=== PATIENT | female | born 1995 | race Two or more races ===

== ENCOUNTER → 2022-01-25 13:00 | Outpatient (BNVA) | payer OTHER, SELFPAY | PROVIDERS: Visit Provider Physician Assistant | DX: E66.01 Morbid (severe) obesity due to excess calories (principal); Z68.41 Body mass index [BMI] 40.0-44.9, adult; Z90.3 Acquired absence of stomach [part of] | CPT/HCPCS: 99202 ==

== ENCOUNTER 2022-02-15 08:27 | Outpatient (REF) | payer OTHER, SELFPAY ==
[2022-02-15 09:08] LABS: MANUAL DIFF FLAG NO
[2022-02-15 09:25] LABS: Basophils Percent Auto 0.3 % (0-2); Eosinophils Percent Auto 0.7 % (0-4); Hematocrit 37.8 % (37.0-47.0); Hemoglobin 12.5 g/dl (12.0-16.0); Imm Gran Abs Auto 0.02 X10*3/uL (0.00-0.03); Imm Gran Pct Auto 0.3 % (0.0-0.4); Lymphocytes Absolute Auto 1.9 X10*3/uL (1.2-4.9); Lymphocytes Percent Auto 31.4 % (20-40); Mean Corpuscular HGB Conc 33.1 g/dl (31.0-35.0); Mean Corpuscular Volume 84.6 fL (80.0-98.0); Mean Platelet Volume 9.4 fL (9.4-12.3); Monocytes Absolute Auto 0.4 X10*3/uL (0.1-1.2); Monocytes Percent Auto 6.3 % (2-11); Neutrophils Absolute Auto 3.7 x10*3/uL (2.0-8.3); Platelet Count 264 X10*3/uL (160-400); Red Blood Count 4.47 X10*6/uL (4.20-5.50); Red Cell Distribution Width 13.2 % (11.0-16.0); White Blood Count 6.1 X10*3/uL (4.8-10.8)
[2022-02-15 09:32] LABS: Estimated Average Glucose 94 mg/dL; Hemoglobin A1c % 4.9 %
[2022-02-15 10:05] LABS: Alanine Aminotransferase 33 U/L (0-31); Albumin Level 4.3 g/dL (3.5-5.0); Alkaline Phosphatase 82 U/L (39-117); Anion Gap 13 (12-20); Aspartate Amino Transferase 28 U/L (5-31); Bilirubin Total 0.4 mg/dL (0.0-1.0); Blood Urea Nitrogen 10 mg/dL (9-16); C Reactive Protein 1.19 mg/dL (< or = 0.50); Calcium 9.1 mg/dL (8.4-10.2); Carbon Dioxide 26 mmol/L (22-29); Chloride 104 mmol/L (96-108); Cholesterol 203 mg/dL; Estimated Glomerular Filt Rate > 60; Ferritin 19 ng/mL (10-122); Glucose Random 96 mg/dL (60-115); HDL Cholesterol 59 mg/dL; Insulin 12 uU/mL (2-29); Iron 102 mcg/dL (30-160); LDL Cholesterol Calculated 126 mg/dl; Percent Iron Saturation 31 % (15-50); Sodium 139 mmol/L (135-145); TSH reflex Free T4 1.51 uIU/mL (0.32-4.0); Total Iron Binding Capacity 333 mcg/dL (228-428); Total Protein 7.5 g/dL (6.5-8.0); Triglycerides 93 mg/dL; Unsaturated Iron Binding 231 ug/dL
[2022-02-15 10:16] LABS: Folate 10.8 ng/mL (> or = 4.0); Vitamin B12 237 pg/mL (200-900)
[2022-02-16 13:57] LABS: H Pylori Breath Test Negative (Negative)
[2022-02-16 17:53] LABS: Calcium (PTHI) 9.1 mg/dL (8.6-10.2); PTHI 67 pg/mL (16-77)
[2022-02-18 10:38] LABS: Vitamin B1 8 nmol/L (8-30)
[2022-02-18 19:24] LABS: Zinc 68 mcg/dL (60-130)
[2022-02-20 16:54] LABS: Vitamin A 29 mcg/dL (38-98)
== END 2022-02-15 08:28 | disposition home or self-care (01) ==
LOC: HO.LAB 08:27
PROVIDERS: PCP Internal Medicine; Visit Provider Physician Assistant
DX: Z01.818 Encounter for other preprocedural examination (principal); E66.01 Morbid (severe) obesity due to excess calories; Z90.3 Acquired absence of stomach [part of]
CPT/HCPCS: 36415; 80053; 80061; 82306; 82607; 82728; 82746; 83013; 83036; 83525; 83540; 83970; 84425; 84443; 84590; 84630; 85025; 86140; 99211

== ENCOUNTER → 2022-02-17 13:03 | Outpatient (BNVA) | payer OTHER, SELFPAY | PROVIDERS: PCP Internal Medicine; Visit Provider Dietitian, Registered | DX: E66.01 Morbid (severe) obesity due to excess calories (principal) | CPT/HCPCS: 97802 ==

== ENCOUNTER → 2022-03-08 16:00 | Outpatient (BNVA) | payer OTHER, SELFPAY | PROVIDERS: PCP Internal Medicine; Visit Provider Physician Assistant | DX: Z13.89 Encounter for screening for other disorder (principal) ==

== ENCOUNTER 2022-03-15 09:50 | Outpatient (REF) | payer OTHER, SELFPAY ==
--- NOTE | ~2022-03-15 | US_ITS ---
EXAMINATION: US COMPLETE ABDOMEN WITH LIVER ELASTOGRAPHY CLINICAL INFORMATION: Bariatric service evaluation. E66.01 COMPARISON: None. TECHNIQUE: Real-time imaging of the abdominal viscera. Noninvasive ultrasound liver fibrosis assessment is performed using Marissa ElastPQ point quantification shear wave elastography (2D-SWE) with a C5-2 MHz transducer. Multiple elastography samples are obtained. FINDINGS: PANCREAS: The pancreas is obscured by bowel gas and not imaged. ABDOMINAL AORTA: The proximal, middle, and distal aortic segments are normal in caliber. INFERIOR VENA CAVA: Visualized portions are normal. LIVER: The liver is normal in size and smooth in contour. Parenchymal areas homogeneous and there is no parenchymal lesion or intrahepatic ductal dilatation. There is likely borderline hepatic steatosis. The right lobe measures 12.4 cm in length. The left lobe measures 8.6 cm in length. Portal flow is towards the liver (hepatopetal). Shear wave liver elastography median stiffness is 1.40 m/s (reference: normal median stiffness is 1.3 m/s or less). IQR/median stiffness to assess sampling precision is 0.17 (reference: good quality data set is IQR/median stiffness of 0.15 or less). GALLBLADDER: Normal. The gallbladder is physiologically distended without evidence of stones, sludge, polyps, wall thickening or pericholecystic fluid. COMMON BILE DUCT: Normal in caliber measuring 0.2 cm in diameter. RIGHT KIDNEY: Normal. No hydronephrosis. No renal calculi or focal parenchymal lesions. The kidney measures 9.7 cm in maximum dimension. LEFT KIDNEY: Normal. No hydronephrosis. No renal calculi or focal parenchymal lesions. The kidney measures 10.1 cm in maximum dimension. SPLEEN: Normal. The spleen measures 9.9 cm in maximum dimension. FREE FLUID: None. US/US abdomen comp w elastography IMPRESSION: 1. No cholelithiasis or ductal dilatation. 2. Pancreas obscured by bowel gas and not imaged. 3. Liver normal in size and homogeneous. Although liver elastography measurements appear to rule out compensated advanced chronic liver disease, there is statistical variability of the sampling which decreases accuracy. REFERENCE: Society of Radiologists in Ultrasound Liver Stiffness Thresholds (2020): LIVER STIFFNESS THRESHOLDS: *Liver Stiffness equal or less than 1.3 m/s: High probability of being normal. *Liver Stiffness less than 1.7 m/s: In the absence of other known clinical signs, rules out compensated advanced chronic liver disease. *Liver Stiffness 1.7-2.1 m/s: Suggestive of compensated advanced chronic liver disease but need further test for confirmation. *Liver Stiffness over 2.1 m/s: Rules in compensated advanced chronic liver disease. *Liver Stiffness over 2.4 m/s: Suggestive of clinically significant portal hypertension. QUALITY OF DATA SET: *IQR/Median value equal or less than 0.15 implies a quality data set. *IQR/Median value over 0.15 implies a poor quality data set. SIGNIFICANT CHANGE FROM PRIOR EXAM: Significant change if liver stiffness measurement is 10% or greater from prior exam. OTHER CONSIDERATIONS: The stage of liver fibrosis may be overestimated in the setting of acute hepatitis, liver inflammation, elevated liver function tests, hepatic vascular congestion, obstructive cholestasis, non-fasting state, and infiltrative diseases such as amyloidosis and lymphoma. In some patients with NAFLD, the liver stiffness thresholds for compensated advanced chronic liver disease may be lower. In causes other than viral hepatitis and NAFLD, liver stiffness thresholds are not well established.
--- NOTE | ~2022-03-15 | XR_ITS ---
EXAMINATION: XR CHEST CLINICAL INFORMATION: Bariatric service evaluation. E66.01 COMPARISON: None TECHNIQUE: 2 views of the chest were obtained. FINDINGS: The lungs are clear. No hyperinflation, infiltrate, or effusion. Heart size normal. Vascularity normal. Costophrenic sulci are clear. The hilar and mediastinal contours and bony structures are unremarkable. XR/XR chest 2V IMPRESSION: Unremarkable examination.
--- NOTE | ~2022-03-15 | FL_ITS ---
EXAMINATION: FL UPPER GI SERIES CLINICAL INFORMATION: Bariatric service evaluation. E 66.01. Prior history gastric sleeve approximately 6 years ago at outside facility. COMPARISON: Chest radiograph 03/15/2022 TECHNIQUE: Upper GI series is performed using fluoroscopic evaluation in addition to multiple fluoroscopic spot views. The patient is imaged both upright and prone and using thin barium sulfate along with effervescent granules. Patient declined thick viscous barium which limits mucosal coating. Fluoroscopy time: 0.9 minutes DAP: 17.409 Gycm2 Fluoroscopic spot images: 18 FINDINGS: Patient declined thick viscous barium which limits mucosal coating for assessment of erosions and small ulcerations. There is normal esophageal motility. There is no obstruction, stricture, ulceration, or hernia. There is spontaneous gastroesophageal reflux seen during fluoroscopy to proximal thoracic esophagus. There has been prior gastric sleeve. The stomach shows no thickened folds or ulcer crater. There is no gastric outlet obstruction. The duodenal bulb is pliable and there is no ulceration or scarring. Upper jejunal mucosal pattern within normal. FL/FL upper GI w air IMPRESSION: -Spontaneous gastroesophageal reflux to proximal thoracic esophagus. -Prior gastric sleeve. No ulcer crater or gastric outlet obstruction.
--- NOTE | 2022-03-15 10:51 | ECG_ITS ---
Test Reason : obesity Blood Pressure : / mmHG Vent. Rate : 093 BPM Atrial Rate : 093 BPM P-R Int : 152 ms QRS Dur : 078 ms QT Int : 352 ms P-R-T Axes : 049 024 010 degrees QTc Int : 437 ms Normal sinus rhythm Normal ECG No previous ECGs available Referred By: Lucinda Lam Electronically Signed By:ELISA MCGEE
== END 2022-03-15 09:51 | disposition home or self-care (01) ==
LOC: HO.US 09:50
PROVIDERS: PCP Internal Medicine; Visit Provider Physician Assistant
DX: Z01.818 Encounter for other preprocedural examination (principal); E66.01 Morbid (severe) obesity due to excess calories; Z90.3 Acquired absence of stomach [part of]
CPT/HCPCS: 71046; 74246; 76705; 76981; 93005

== ENCOUNTER → 2022-03-16 14:00 | Outpatient (BNVA) | payer OTHER, SELFPAY | PROVIDERS: PCP Internal Medicine; Visit Provider Counselor Mental Health | DX: F43.20 Adjustment disorder, unspecified (principal); E66.01 Morbid (severe) obesity due to excess calories; Z90.3 Acquired absence of stomach [part of] | CPT/HCPCS: 90791 ==

== ENCOUNTER → 2022-04-07 10:00 | Outpatient (BNVA) | payer OTHER, SELFPAY | PROVIDERS: PCP Internal Medicine; Visit Provider Physician Assistant | DX: Z13.89 Encounter for screening for other disorder (principal) ==

== ENCOUNTER 2022-04-11 05:52 | Day surgery (SDC) | payer OTHER, SELFPAY ==
[2022-04-04 11:20] VITALS: BMI 40.6
--- NOTE | 2022-04-08 15:21 | MHC.SHP ---
Pre-Procedural Eval Section A Date of Service: 04/08/22 The patient is an INPATIENT: No The History & Physical has been completed within 30 days and I have reviewed it.: Yes Section B Chief Complaint: Bariatric surgery status Relevant Family History (Specify if Yes): No Relevant Social History: None Present Medications: None Medical History: No relevant PMH History of Previous Operations: Relevant previous surgery/procedure and date(s) (Laparoscopic sleeve gastrectomy) Allergies: Allergies Allergy/AdvReac Type Severity Reaction Status Date / Time No Known Allergies Allergy Verified 02/15/22 09:13 Review of Systems Sugical H&P ROS: Negative: Constitution, Cardiovascular, Respiratory, Neurological, Psychiatric, Hem-Onc, Allergic/Immunologic, Gastrointestinal, Genitourinary, Musculoskeletal, Integumentary, Endocrine and Eyes/Ears/Nose/Throat Exam Surgical H&P Exam: Normal: HEENT, Normal: Heart, Normal: Lungs, Normal: Extremities, Normal: Abdomen, Normal: Skin and Normal: Neurological Plan Diagnosis/Plan: Unchanged (EGD to assess for esphagitis. Risks for perforation and bleeding were discussed with patient. She is in agreement with the plan) I have reviewed the history and physical and performed a pertinent physical examination on my patient. No changes have occurred unless specified. Time Spent With Patient Time: Total time managing care of this patient today ____ minutes.
[2022-04-11 06:15] LABS: UPreg QC Valid YES; Urine Pregnancy NEGATIVE (NEGATIVE)
[2022-04-11 06:22] LABS: COVID-19 Test Negative (Negative); IDNOW Serial# BCCEAD1C
[2022-04-11 06:32] VITALS: BP 108/73; PULSE 79; RESP 16; TEMP 36.2; O2SAT 100; BMI 39.2
[2022-04-11] MEDS: Lactated Ringers 1,000 ML 80 ML IVCONT (06:45)
--- NOTE | 2022-04-11 07:18 | P.CONAN_ITS ---
HPI - Anesthesia Eval Consult details Narrative: 26yo female patient for EGD. S/p Sleeve gastrectomy 2016 [facility] Active Problems Active Problems: All Active Problems (Updated 03/16/22 @ 14:28 by Rochelle Hopkins) Adjustment disorder, unspecified (Acute) Pre-op evaluation (Acute) History of sleeve gastrectomy (Acute) Morbid obesity (Acute) BMI 39.2 Denies BJ Family History Family History Mother No problems noted. Father No problems noted. Sister No problems noted. Family history of problems with anesthesia: No Surgical History Surgical History History of sleeve gastrectomy History of Problems with Anesthesia: No Social History Social History Alcohol intake: current Alcohol intake frequency: a few times a month Patient Tobacco Use Status: Never used Tobacco e-Cigarette/Vaping Use: Currently Using Use of substances other than those prescribed or required for medical reasons: No Are you DNR?: No Advance Directives: No Advance Directives Information Provided: Yes Meds Allergies Allergy/AdvReac Type Severity Reaction Status Date / Time No Known Allergies Allergy Verified 04/11/22 06:11 Active Medications: Current Medications Lactated Ringer's (Lr) 1,000 mls @ 80 mls/hr IVCONT .[id number] MARY Last Admin: 04/11/22 06:45 Dose: 80 mls/hr Home Medications Medication Instructions Recorded Confirmed Last Taken Type trazodone 50 mg tablet 50 mg PO BEDTIME PRN Sleep 01/11/22 04/11/22 04/10/22 22:00 History Exam Exam Date and Time: April 11, 2022 0718 Height,Weight and Vital Signs: Height 5 ft 4.5 in Weight 105.233 kg Last Vital Signs Temp 97.2 F 04/11/22 06:32 Pulse 79 04/11/22 06:32 Resp 16 04/11/22 06:32 BP 108/73 04/11/22 06:32 Pulse Ox 100 04/11/22 06:32 O2 Del Method 04/11/22 06:32 Pertinent Lab Results Pertinent Lab Results: Laboratory Tests 04/11/22 04/11/22 05:44 05:44 Urine Test NEGATIVE COVID-19 ([facility]) Negative COVID-19 Clin Com See Note Airway Mallampati Class: II TM Dist: >3cm Neck ROM: Full Loose/Missing/Broken Teeth: No (Cap top right back. Denies broken, loose, missing teeth) Heart: RRR Lungs: CTAB Assessment and Plan Assessment Anesthesia Assessment: Anesthesia Plan Discussed and Chart Reviewed Final Anesthetic Review Family History of Problems with Anesthesia: No History of Problems with Anesthesia: No NPO: Yes ASA Class: III Final Preanesthetic Review: No Changes in Pt Med Stat, Meds/Allgs Chart Reviewed, Consent Obtained/Reviewed and Anes Risks/Benef Reviewed Patient Risk: Intermediate Procedure Risk: Low Assessment/Block/Sedation in SS: Assess/Block/Sedation-SS Anesthetic Plan Anesthetic Plan: MAC: Disposition: Standard PACU
--- NOTE | 2022-04-11 07:38 | PM.OP ---
Brief Operative Note Date of Service: 04/11/22 Pre-op diagnosis: GERD, s/p sleeve gastrectomy Post-op diagnosis: same Procedure: PROCEDURE DATE: 04/11/2022 PREOPERATIVE DIAGNOSIS: GERD, s/p sleeve gastrectomy POSTOPERATIVE DIAGNOSIS: ?Same as above. 1) redundant proximal sleeve,, 2) bile reflux, 3) mild distal gastritis PROCEDURE: [id number] with biopsies Surgeon: ?Kamran Ling M.D.. Ph.D. Retail Presentation Specialist: None ? Anesthesia: IV sedation Estimated blood loss: ?Minimal FINDINGS AND PROCEDURE: ? OPERATIVE INDICATIONS: ?The patient is a 26 year old female known to me who underwent a laparoscopic sleeve gastrectomy elsewhere. The patient had inadequate weight loss. The patient has been complaining of GERD. Based on this information I recommended an upper endoscopy to evaluate the patient's symptoms. Risks and complications of the surgery were discussed with the patient in advance particularly the possibility of perforation or bleeding that may require surgical intervention. The patient understood the risks and was in agreement with the plan. ? PROCEDURE: After informed consent was obtained by the patient, the patient was ?transferred to the Operating Room and was placed in the supine position.? After successful induction of IV sedation, a mouth block was inserted and the patient was placed in the left lateral decubitus position. An upper endoscopy was performed next, the oropharynx and esophagus appeared within the normal limits. There was no hiatal hernia. The z-line was smooth. Two biopsies were obtained from the distal esohagus 2-3 cm proximal to the GE junction and two additional biopsies from the GE junction. The sleeve was entered and there was a sifnificant amount of bile. The proximal sleeve was very redundant suggestive of incomplete resection at the original operation. There was a very sharp turn at the middle part of the sleeve but no stenosis. There was mild gastritis at distal antrum. There was no stricture or ulcer. Biopsies were obtained from the proximal sleeve as well as the distal antrum. No significant bleeding was noted from any of the biopsy sites. The scope was then advanced into the duodenum which appeared to be normal as well. At that point the duodenum ?and the sleeve were decompressed and the scope was withdrawn from the patient's mouth. The patient extubated and was transferred in stable condition to the Recovery Room for further care. I was present and performed all steps of the procedure. There were no residents to assist with this case. Kamran Ling M.D., Ph.D. Surgeon: Cole Ling MD Anesthesia: MAC Was an Retail Presentation Specialist used for this Procedure?: No Estimated blood loss (mL): 0 IV fluids (mL): 400 Urine output (mL): 0 (No Henson to record output) Pathology: other (1) antrum x1, 2) proximal sleeve/gastric fundus x1, 3) EGJ x2, 4) distal esophagus x2) Condition: stable Disposition: PACU
[2022-04-11 08:07] VITALS: BP 105/59; PULSE 73; RESP 16; TEMP 36.3; O2SAT 99
[2022-04-11 08:22] VITALS: BP 104/62; PULSE 72; RESP 16; TEMP 36.3; O2SAT 100
== END 2022-04-11 09:04 | disposition home or self-care (01) ==
PROVIDERS: Anesthesiology; PCP Internal Medicine; Visit Provider Surgery
PROC: 0DJ08ZZ Inspection of Upper Intestinal Tract, Via Natural or Artificial Opening Endoscopic (ICD-10-PCS; CPT 43235; principal; 2022-04-11 07:30)
DX: K95.89 Other complications of other bariatric procedure (principal); K21.9 Gastro-esophageal reflux disease without esophagitis; K20.90 Esophagitis, unspecified without bleeding; K29.50 Unspecified chronic gastritis without bleeding; Z98.84 Bariatric surgery status; Z90.3 Acquired absence of stomach [part of]; Z79.4 Long term (current) use of insulin; Z79.899 Other long term (current) drug therapy; Z20.822 Contact with and (suspected) exposure to COVID-19; F17.290 Nicotine dependence, other tobacco product, uncomplicated
CPT/HCPCS: 43239; 81025; 87635; 88305; 88342; J3010

== ENCOUNTER → 2022-04-27 13:30 | Outpatient (BNVA) | payer OTHER, SELFPAY | PROVIDERS: PCP Internal Medicine; Visit Provider Physician Assistant ==

== ENCOUNTER → 2022-05-12 08:19 | Outpatient (BNVA) | payer OTHER, SELFPAY | PROVIDERS: PCP Internal Medicine; Visit Provider Surgery ==

== ENCOUNTER → 2022-05-17 08:04 | Outpatient (BNVA) | payer OTHER, SELFPAY | PROVIDERS: PCP Internal Medicine; Visit Provider Surgery | DX: E66.9 Obesity, unspecified (principal); Z68.38 Body mass index [BMI] 38.0-38.9, adult; Z90.3 Acquired absence of stomach [part of]; K20.90 Esophagitis, unspecified without bleeding; R11.0 Nausea; Z01.818 Encounter for other preprocedural examination ==

== ENCOUNTER → 2022-05-19 12:48 | Outpatient (BNVA) | payer OTHER, SELFPAY | PROVIDERS: PCP Internal Medicine; Visit Provider Surgery ==

== ENCOUNTER → 2022-05-25 09:05 | Day surgery (SDC) | payer OTHER, SELFPAY ==
[2022-05-18 08:23] LABS: MANUAL DIFF FLAG NO
[2022-05-18 08:25] LABS: Basophils Percent Auto 0.5 % (0-2); Eosinophils Absolute Auto 0.1 X10*3/uL (0.0-0.4); Eosinophils Percent Auto 1.2 % (0-4); Hematocrit 39.6 % (37.0-47.0); Hemoglobin 13.2 g/dl (12.0-16.0); Imm Gran Abs Auto 0.02 X10*3/uL (0.00-0.03); Imm Gran Pct Auto 0.3 % (0.0-0.4); Lymphocytes Absolute Auto 1.6 X10*3/uL (1.2-4.9); Lymphocytes Percent Auto 24.3 % (20-40); Mean Corpuscular HGB Conc 33.3 g/dl (31.0-35.0); Mean Corpuscular Hemoglobin 28.5 pg (27.0-33.0); Mean Corpuscular Volume 85.5 fL (80.0-98.0); Mean Platelet Volume 9.2 fL (9.4-12.3); Monocytes Absolute Auto 0.4 X10*3/uL (0.1-1.2); Neutrophils Absolute Auto 4.4 x10*3/uL (2.0-8.3); Neutrophils Percent Auto 67.7 % (45-73); Platelet Count 261 X10*3/uL (160-400); Red Blood Count 4.63 X10*6/uL (4.20-5.50); Red Cell Distribution Width 13.9 % (11.0-16.0); White Blood Count 6.6 X10*3/uL (4.8-10.8)
[2022-05-18 08:32] LABS: Prothrombin Time 11.5 SEC (10.0-13.1)
[2022-05-18 08:34] LABS: Estimated Average Glucose 103 mg/dL; Hemoglobin A1c % 5.2 %
[2022-05-18 08:35] LABS: Partial Thromboplastin Time 36.3 SEC (26.0-36.4)
[2022-05-18 09:09] LABS: Alanine Aminotransferase 20 U/L (0-31); Albumin Level 4.2 g/dL (3.5-5.0); Alkaline Phosphatase 86 U/L (39-117); Anion Gap 14 (12-20); Aspartate Amino Transferase 22 U/L (5-31); Bilirubin Total 0.7 mg/dL (0.0-1.0); Blood Urea Nitrogen 9 mg/dL (9-16); C Reactive Protein 2.23 mg/dL (< or = 0.50); Calcium 8.8 mg/dL (8.4-10.2); Carbon Dioxide 22 mmol/L (22-29); Chloride 110 mmol/L (96-108); Cholesterol 208 mg/dL; Estimated Glomerular Filt Rate > 60; Glucose Random 88 mg/dL (60-115); HDL Cholesterol 60 mg/dL; LDL Cholesterol Calculated 127 mg/dl; Potassium 4.3 mmol/L (3.3-5.1); Sodium 142 mmol/L (135-145); Total Protein 7.4 g/dL (6.5-8.0); Triglycerides 109 mg/dL
[2022-05-18 09:25] LABS: Insulin 13 uU/mL (2-29); TSH reflex Free T4 1.67 uIU/mL (0.32-4.0)
[2022-05-19 09:01] VITALS: BMI 38.0
--- NOTE | 2022-05-19 17:52 | MHC.SHP ---
Pre-Procedural Eval Section A Date of Service: 05/19/22 The patient is an INPATIENT: Yes The History & Physical has been completed within 30 days and I have reviewed it.: Yes Section B Chief Complaint: Obesity, unspecified Relevant Family History (Specify if Yes): No Relevant Social History: None Present Medications: None Medical History: No relevant PMH History of Previous Operations: Relevant previous surgery/procedure and date(s) (laparoscopic sleeve gastrectomy) Allergies: Allergies Allergy/AdvReac Type Severity Reaction Status Date / Time No Known Allergies Allergy Verified 04/11/22 06:11 Review of Systems Sugical H&P ROS: Negative: Constitution, Cardiovascular, Respiratory, Neurological, Psychiatric, Hem-Onc, Allergic/Immunologic, Gastrointestinal, Genitourinary, Musculoskeletal, Integumentary, Endocrine and Eyes/Ears/Nose/Throat Exam Surgical H&P Exam: Normal: HEENT, Normal: Heart, Normal: Lungs, Normal: Extremities, Normal: Abdomen, Normal: Skin and Normal: Neurological Plan Diagnosis/Plan: Unchanged I have reviewed the history and physical and performed a pertinent physical examination on my patient. No changes have occurred unless specified. Time Spent With Patient Time: Total time managing care of this patient today ____ minutes.
[2022-05-24 13:41] LABS: COVID-19 Test Negative (Negative); IDNOW Serial# 9DB6401D
--- NOTE | 2022-05-25 09:14 | PHA.MEDREC ---
Pharmacy Consult ? Medication Reconciliation Pharmacy has reviewed the medication reconciliation completed by nursing.
[2022-05-25 09:48] VITALS: BP 99/67; PULSE 75; RESP 16; TEMP 36.3; O2SAT 98
[2022-05-25 09:48] LABS: UPreg QC Valid YES; Urine Pregnancy NEGATIVE (NEGATIVE)
[2022-05-25] MEDS: Lactated Ringers 1,000 ML 999 ML IV (10:02)
--- NOTE | 2022-05-25 10:12 | P.CONAN_ITS ---
HPI - Anesthesia Eval Consult details Narrative: 26yo female patient for EGD, Revision of sleeve gastrectomy, possible diaphragmatic hernia repair, possible ventral hernia repair, possible open PMFSH Active Problems Active Problems: All Active Problems (Updated 05/19/22 @ 09:01 by Cynthia Wilson RN) Morbid obesity (Acute) Pre-op evaluation (Acute) Adjustment disorder, unspecified (Acute) Esophagitis determined by endoscopy (Acute) Obesity (Acute) BMI 38.0-38.9,adult (Acute) History of sleeve gastrectomy (Acute) Past Medical History Medical History Esophagitis determined by endoscopy GERD (gastroesophageal reflux disease) Insomnia Family History Family History Mother No problems noted. Father No problems noted. Sister No problems noted. Family history of problems with anesthesia: No Surgical History Surgical History History of esophagogastroduodenoscopy (EGD) History of sleeve gastrectomy History of Problems with Anesthesia: No Social History Social History Household Members Other:: grandparents Are you a primary animal care giver to a significant other at home: No Do you presently have visiting nurse or other home services: No Alcohol intake: current Alcohol intake frequency: holidays/special occasions only Patient Tobacco Use Status: Never used Tobacco Years Smoked: currently vaping e-Cigarette/Vaping Use: Currently Using Use of substances other than those prescribed or required for medical reasons: No Have you been hit, kicked, punched, or otherwise hurt by someone within the past year? If so, by whom?: No Are you DNR?: No Advance Directives: No Advance Directives Information Provided: Yes (brochure mailed) Advance Directives on File: No Recently lost weight without trying: No Eating poorly because of decreased appetite: No Nutrition Risks: No Nutritional Risk Patient : No FDLMP: 05/18/22 : No Poor oral hygiene: No (has dental caps) Meds Allergies Allergy/AdvReac Type Severity Reaction Status Date / Time No Known Allergies Allergy Verified 04/11/22 06:11 Active Medications: Current Medications Lactated Ringer's (Lr) 1,000 mls @ 999 mls/hr IV .Q1H1M MARY Stop: 05/25/22 11:15 Last Admin: 05/25/22 10:02 Dose: 999 mls/hr Home Medications Medication Instructions Recorded Confirmed Last Taken Type trazodone 50 mg tablet 50 mg PO BEDTIME PRN Sleep 01/11/22 05/19/22 05/24/22 History ondansetron 4 mg disintegrating 4 mg PO Q12H PRN Nausea And 05/25/22 05/25/22 Unknown History tablet Vomiting Exam Exam Date and Time: May 25, 2022 1012 Height,Weight and Vital Signs: Height 5 ft 4.5 in Weight 102.058 kg Last Vital Signs Temp 97.4 F 05/25/22 09:48 Pulse 75 05/25/22 09:48 Resp 16 05/25/22 09:48 BP 99/67 05/25/22 09:48 Pulse Ox 98 05/25/22 09:48 O2 Del Method Room Air 05/25/22 09:48 Pertinent Lab Results Pertinent Lab Results: Laboratory Tests 05/18/22 05/18/22 05/18/22 08:20 08:21 08:21 WBC 6.6 RBC 4.63 Hgb 13.2 Hct 39.6 MCV 85.5 MCH 28.5 MCHC 33.3 RDW 13.9 Plt Count 261 MPV 9.2 L Immature Gran % (Auto) 0.3 Neut % (Auto) 67.7 Lymph % (Auto) 24.3 Brown % (Auto) 6.0 Eos % (Auto) 1.2 Baso % (Auto) 0.5 Lymph # (Auto) 1.6 Brown # (Auto) 0.4 Eos # (Auto) 0.1 Baso # (Auto) 0.0 Abs Immat Gran (auto) 0.02 Absolute Neuts (auto) 4.4 Absolute Nucleated RBC 0.000 Nucleated RBC % (auto) 0.0 PT 11.5 INR 1.0 APTT 36.3 Sodium Potassium Chloride Carbon Dioxide Anion Gap BUN Creatinine Estim Creat Clear Calc Estimated GFR Random Glucose Estimat Average Glucose Hemoglobin A1c % Insulin Level Calcium Total Bilirubin AST ALT Alkaline Phosphatase C-Reactive Protein Total Protein Albumin Triglycerides Cholesterol LDL Cholesterol, Calc HDL Cholesterol TSH Urine Test COVID-19 ([facility]) COVID-19 Clin Com Blood Type O Positive Antibody Screen NEGATIVE 05/18/22 05/18/22 05/24/22 08:21 08:21 13:00 WBC RBC Hgb Hct MCV MCH MCHC RDW Plt Count MPV Immature Gran % (Auto) Neut % (Auto) Lymph % (Auto) Brown % (Auto) Eos % (Auto) Baso % (Auto) Lymph # (Auto) Brown # (Auto) Eos # (Auto) Baso # (Auto) Abs Immat Gran (auto) Absolute Neuts (auto) Absolute Nucleated RBC Nucleated RBC % (auto) PT INR APTT Sodium 142 Potassium 4.3 Chloride 110 H Carbon Dioxide 22 Anion Gap 14 BUN 9 Creatinine 0.66 Estim Creat Clear Calc TNP Estimated GFR > 60 Random Glucose 88 Estimat Average Glucose 103 Hemoglobin A1c % 5.2 Insulin Level 13 Calcium 8.8 Total Bilirubin 0.7 AST 22 ALT 20 Alkaline Phosphatase 86 C-Reactive Protein 2.23 H Total Protein 7.4 Albumin 4.2 Triglycerides 109 Cholesterol 208 LDL Cholesterol, Calc 127 HDL Cholesterol 60 TSH 1.67 Urine Test COVID-19 ([facility]) Negative [employer] See Note Blood Type Antibody Screen 05/25/22 09:26 WBC RBC Hgb Hct MCV MCH MCHC RDW Plt Count MPV Immature Gran % (Auto) Neut % (Auto) Lymph % (Auto) Brown % (Auto) Eos % (Auto) Baso % (Auto) Lymph # (Auto) Brown # (Auto) Eos # (Auto) Baso # (Auto) Abs Immat Gran (auto) Absolute Neuts (auto) Absolute Nucleated RBC Nucleated RBC % (auto) PT INR APTT Sodium Potassium Chloride Carbon Dioxide Anion Gap BUN Creatinine Estim Creat Clear Calc Estimated GFR Random Glucose Estimat Average Glucose Hemoglobin A1c % Insulin Level Calcium Total Bilirubin AST ALT Alkaline Phosphatase C-Reactive Protein Total Protein Albumin Triglycerides Cholesterol LDL Cholesterol, Calc HDL Cholesterol TSH Urine Test NEGATIVE COVID-19 ([facility]) [employer] Systems Blood Type Antibody Screen Airway Mallampati Class: II TM Dist: >3cm Neck ROM: Full Denture: Upper Loose/Missing/Broken Teeth: No (Cap top right back, intact. Denies broken, loose, missing teeth) Heart: RRR Lungs: CTAB Assessment and Plan Assessment Anesthesia Assessment: Anesthesia Plan Discussed and Chart Reviewed Final Anesthetic Review Family History of Problems with Anesthesia: No History of Problems with Anesthesia: No NPO: Yes ASA Class: III Final Preanesthetic Review: No Changes in Pt Med Stat, Meds/Allgs Chart Reviewed, Consent Obtained/Reviewed and Anes Risks/Benef Reviewed Patient Risk: Intermediate Procedure Risk: Intermediate Assessment/Block/Sedation in SS: Assess/Block/Sedation-SS Anesthetic Plan Anesthetic Plan: GA Disposition: Standard PACU and Inp. Admit - Standard Bed
[2022-05-25] MEDS: Lactated Ringers 1,000 ML 100 ML IVCONT (11:46)
--- NOTE | 2022-05-25 12:32 | PC.NURSE ---
MD LEMA BY THE BEDSIDE SPEAKING TO PATIENT AND CANCELLED SURGERY DUE TO TAKING LONGER WITH HIS PREVIOUS CASE THAT IS STILL ON GOING. TO BE RESCHEDULED. IV REMOVED. PATIENT ALREADY CALLED FOR HER RIDE HOME.
== END ==
LOC: HO.SSSA 05-26 07:22 → HO.SSS 05-26 14:06
PROVIDERS: Visit Provider Surgery
DX: E66.9 Obesity, unspecified (principal); Z98.84 Bariatric surgery status; Z53.8 Procedure and treatment not carried out for other reasons; Z20.822 Contact with and (suspected) exposure to COVID-19
CPT/HCPCS: 36415; 80053; 80061; 81025; 83036; 83525; 84443; 85025; 85610; 85730; 86140; 86850; 86900; 86901; 87635; J0690

== ENCOUNTER 2022-05-31 05:59 | Inpatient (IN) | payer OTHER, SELFPAY ==
--- NOTE | 2022-05-26 22:36 | MHC.SHP ---
Pre-Procedural Eval Section A Date of Service: 05/26/22 The patient is an INPATIENT: Yes The History & Physical has been completed within 30 days and I have reviewed it.: Yes Section B Chief Complaint: Obesity, unspecified Relevant Family History (Specify if Yes): No Relevant Social History: None Present Medications: None Medical History: No relevant PMH History of Previous Operations: Relevant previous surgery/procedure and date(s) (Laparoscopic sleeve gastrectomy) Allergies: Allergies Allergy/AdvReac Type Severity Reaction Status Date / Time No Known Allergies Allergy Verified 04/11/22 06:11 Review of Systems Sugical H&P ROS: Negative: Constitution, Cardiovascular, Respiratory, Neurological, Psychiatric, Hem-Onc, Allergic/Immunologic, Gastrointestinal, Genitourinary, Musculoskeletal, Integumentary, Endocrine and Eyes/Ears/Nose/Throat Exam Surgical H&P Exam: Normal: HEENT, Normal: Heart, Normal: Lungs, Normal: Extremities, Normal: Abdomen, Normal: Skin and Normal: Neurological Plan Diagnosis/Plan: Unchanged I have reviewed the history and physical and performed a pertinent physical examination on my patient. No changes have occurred unless specified. Time Spent With Patient Time: Total time managing care of this patient today ____ minutes.
--- NOTE | 2022-05-30 09:36 | P.CONAN_ITS ---
HPI - Anesthesia Eval Consult details Narrative: 26yo F for Gastrectomy Sleeve EGD,possible diaphragmatic hernia,possible ventral hernia,possible open s/p gastric sleeve 2016 [facility] Active Problems Active Problems: All Active Problems (Updated 05/18/22 @ 09:06 by Cynthia Wilson RN) Morbid obesity (Acute) Pre-op evaluation (Acute) Adjustment disorder, unspecified (Acute) Esophagitis determined by endoscopy (Acute) Obesity (Acute) BMI 38.0-38.9,adult (Acute) Esophagitis (Acute) History of sleeve gastrectomy (Acute) Past Medical History Medical History Esophagitis determined by endoscopy GERD (gastroesophageal reflux disease) Insomnia Family History Family History Mother No problems noted. Father No problems noted. Sister No problems noted. Family history of problems with anesthesia: No Surgical History Surgical History History of esophagogastroduodenoscopy (EGD) History of sleeve gastrectomy History of Problems with Anesthesia: No Social History Social History Household Members: Family Household Members Other:: grandparents Housing: House Are you a primary school child care attendant to a significant other at home: No Do you presently have visiting nurse or other home services: No Alcohol intake: current Alcohol intake frequency: holidays/special occasions only Patient Tobacco Use Status: Never used Tobacco Tobacco use type: Smokeless Tobacco Years Smoked: currently vaping e-Cigarette/Vaping Use: Currently Using service: No Meds Allergies Allergy/AdvReac Type Severity Reaction Status Date / Time No Known Allergies Allergy Verified 04/11/22 06:11 Home Medications Medication Instructions Recorded Confirmed Last Taken Type trazodone 50 mg tablet 50 mg PO BEDTIME PRN Sleep 01/11/22 05/19/22 05/24/22 History ondansetron 4 mg disintegrating 4 mg PO Q12H PRN Nausea And 05/25/22 05/25/22 Unknown History tablet Vomiting Exam Exam Date and Time: May 30, 2022 0936 Pertinent Lab Results Pertinent Lab Results: Laboratory Tests 05/18/22 05/18/22 08:21 08:21 WBC 6.6 Hgb 13.2 Hct 39.6 Plt Count 261 Sodium 142 Potassium 4.3 Chloride 110 H Carbon Dioxide 22 BUN 9 Creatinine 0.66 Narrative Narrative: EKG 02/2022 Vent. Rate : 093 BPM ? ? Atrial Rate : 093 BPM ?? P-R Int : 152 ms? QRS Dur : 078 ms ? ? QT Int : 352 ms ? ? ? P-R-T Axes : 049 024 010 degrees ?? QTc Int : 437 ms ? Normal sinus rhythm Normal ECG No previous ECGs available Assessment and Plan Assessment Anesthesia Assessment: Chart Reviewed Final Anesthetic Review Family History of Problems with Anesthesia: No History of Problems with Anesthesia: No
[2022-05-30 12:37] LABS: COVID-19 Test Negative (Negative); IDNOW Serial# 08D9AD1C
[2022-05-31] VITALS (10 sets, daily range): BP systolic 94–145; BP diastolic 55–95; PULSE 72–106; RESP 16–24; TEMP 36.2–36.6; O2SAT 97–100; BMI 37.4
[2022-05-31 06:23] LABS: UPreg QC Valid YES; Urine Pregnancy NEGATIVE (NEGATIVE)
[2022-05-31] MEDS: Lactated Ringers 1,000 ML 999 ML IV (06:39)
--- NOTE | 2022-05-31 07:26 | P.CONAN_ITS ---
[facility] Active Problems Active Problems: All Active Problems (Updated 05/19/22 @ 09:01 by Cynthia Wilson RN) Morbid obesity (Acute) Pre-op evaluation (Acute) Adjustment disorder, unspecified (Acute) Esophagitis determined by endoscopy (Acute) Obesity (Acute) BMI 38.0-38.9,adult (Acute) Esophagitis (Acute) History of sleeve gastrectomy (Acute) Past Medical History Medical History Esophagitis determined by endoscopy GERD (gastroesophageal reflux disease) Insomnia Family History Family History Mother No problems noted. Father No problems noted. Sister No problems noted. Family history of problems with anesthesia: No Surgical History Surgical History History of esophagogastroduodenoscopy (EGD) History of sleeve gastrectomy History of Problems with Anesthesia: No Social History Social History Household Members Other:: grandparents Are you a primary life care planner to a significant other at home: No Do you presently have visiting nurse or other home services: No Alcohol intake: current Alcohol intake frequency: holidays/special occasions only Patient Tobacco Use Status: Current everyday Tobacco user Tobacco use type: Smokeless Tobacco Years Smoked: currently vaping e-Cigarette/Vaping Use: Currently Using Use of substances other than those prescribed or required for medical reasons: No Are you DNR?: No Advance Directives: No Advance Directives Information Provided: No Nutrition Risks: No Nutritional Risk Meds Allergies Allergy/AdvReac Type Severity Reaction Status Date / Time No Known Allergies Allergy Verified 04/11/22 06:11 Active Medications: Current Medications Lactated Ringer's (Lr) 1,000 mls @ 100 mls/hr IVCONT .Q10H MARY Lactated Ringer's (Lr) 1,000 mls @ 999 mls/hr IV .Q1H1M MARY Stop: 05/31/22 08:00 Last Admin: 05/31/22 06:39 Dose: 999 mls/hr Home Medications Medication Instructions Recorded Confirmed Last Taken Type trazodone 50 mg tablet 50 mg PO BEDTIME PRN Sleep 01/11/22 05/19/22 05/24/22 History ondansetron 4 mg disintegrating 4 mg PO Q12H PRN Nausea And 05/25/22 05/25/22 Unknown History tablet Vomiting Exam Exam Date and Time: May 31, 2022725 Height,Weight and Vital Signs: Height 5 ft 4 in Weight 98.883 kg Last Vital Signs Temp 97.4 F 05/31/22 06:29 Pulse 77 05/31/22 06:29 Resp 16 05/31/22 06:29 BP 94/55 L 05/31/22 06:29 Pulse Ox 97 05/31/22 06:29 O2 Del Method Room Air 05/31/22 06:29 Pertinent Lab Results Pertinent Lab Results: Laboratory Tests 05/30/22 05/31/22 05/31/22 12:13 06:06 06:32 Urine Test NEGATIVE COVID-19 ([facility]) Negative COVID-19 Clin Com See Note Blood Type O Positive Antibody Screen NEGATIVE Airway Mallampati Class: II TM Dist: >3cm Neck ROM: Full Loose/Missing/Broken Teeth: No Heart: RRR Lungs: CTA Assessment and Plan Assessment Anesthesia Assessment: Anesthesia Plan Discussed and Chart Reviewed Final Anesthetic Review Family History of Problems with Anesthesia: No History of Problems with Anesthesia: No NPO: Yes ASA Class: II Final Preanesthetic Review: Meds/Allgs Chart Reviewed, Consent Obtained/Reviewed and Anes Risks/Benef Reviewed Patient Risk: Low Procedure Risk: Intermediate
--- NOTE | 2022-05-31 07:44 | P.BOP_ITS ---
Brief Operative Note Date of Service: 05/31/22 Pre-op diagnosis: Severe obesity with comorbidities (see below) Post-op diagnosis: same Procedure: INITIAL PATIENT BMI ON PRESENTATION AT OUR OFFICE: 42.7 kg/m2 LAST BMI BEFORE SURGERY: 38.4 kg/m2 COMORBIDITIES: sleep apnea on CPAP, GERD, liver steatosis ?The patient presented to the Weight Management Program with significant obesity that was negatively impacting the patient's comorbidities as listed above.? The program is a phased program with a special focus on preoperative medical weight management to promote substantial weight loss and prepare the patients for the second phase of the program: bariatric surgery. The patient participated in an intensive weekly lifestyle ?intervention and exercise program during which the patient ?has lost between the initial office visit and the last preoperative visit 25.2lbs, or 9.56% of initial actual body weight. It was deemed appropriate for the patient to now have bariatric surgery. In light of the current Covid-19 pandemic and the well documented strong association of obesity and increased risk of worse outcomes if infected with Covid-19 (REFERENCES: https://pubmed.ncbi.nlm.nih.gov/89267445/ ,? ht tps://pubmed.ncbi.nlm.nih.gov/25204026/ ), any delay in undergoing bariatric surgery may lead to the patient's worsening health condition and increased?risk of more severe Covid-19 disease if infected. In addition a recent?study from [facility] published in [facility] on 02/14/2021 ([email or web address]/[email or web address]) found that, among patients with obesity, substantial weight loss achieved with surgery was associated with improved outcomes of COVID-19 infection. The findings suggest that obesity can be a modifiable risk factor for the severity of COVID-19 infection. In addition, the patient met the BMI-criteria for bariatric surgery based on the BMI on initial presentation. The patient should not be penalized for achieving such weight loss because ?it is not sustainable long-term without surgical intervention and it was achieved in preparation for bariatric surgery ?under my direction and based on my published research ([email or web address]).pdf and? https://www.soard.org/article/[email or web address](16)22199-X/pdf ) ?that a 10% preoperative weight loss improves long-term weight loss after surgery and reduces perioperative complications.? Insurance carriers such as [facility] have endorsed my recommendations ?and have included in their policies criteria to include a 10% preoperative weight loss requirement. PROCEDURE: Esophago-gastroscopy, laparoscopic repair of incarcerated diaphragmatic hernia, laparoscopic lysis of adhesions, laparoscopic sleeve gastrectomy and laparoscopic gastropexy INDICATIONS: This is a 26 year-old female who was electively scheduled for laparoscopic, possibly open sleeve gastrectomy revision. The patient has a previous sleeve gastrectomy on 08/29/2016 at [facility] with Dr. Hsu. Preoperative work-up including an UGI and EGD is suggestive of a very large proximal pouch of retained gastric fundus as well as incomplete distal antral resection. The objective of this operation is to redo the sleeve. The risks and complications of the procedure were discussed with the patient in advance, particularly the possibility of ; pulmonary embolism; staple line leak; bleeding; GERD; cardiac, pulmonary, or renal complications; as well as long-term problems such as insufficient weight loss, vitamin deficiency, strictures, or ulcers. The patient understood all the risks, and was in agreement to proceed with surgery. DESCRIPTION OF PROCEDURE: After informed consent was obtained from the patient, the patient was given pre operative antibiotics, and was transferred to the operating room. After successful induction of general anesthesia, a Henson catheter and pneumatic compression devices were placed on both lower extremities. An upper endoscopy was performed next. The oropharynx and esophagus appeared to be within normal limits. There was no diaphragmatic hernia present consistent with the findings of the preoperative upper GI. The stomach was entered. Then after all fluid and air were suctioned and the stomach was fully decompressed, the scope was withdrawn and secured in the mid esophagus. The patient was then prepped and draped in the usual sterile manner, and abdominal access was established at the right upper quadrant with the Nasir technique. A 12 mm blunt port was inserted, and the abdomen was insufflated with CO2 to a pressure of 15 mmHg. Under direct visualization, additional ports were placed, specifically two 5 mm Versi-step ports to the left upper quadrant, and a 5 mm Versi-Step port to the right upper quadrant. 1% lidocaine plain was used to infiltrate all port sites as well as all fascia defects. Following that, the patient was placed in a steep reverse Trendelenburg position. An additional 5 mm port was placed to the right flank for the Mediflex retractor that was used to retract the left lobe of the liver. There were very extensive and dense adhesions in the abdomen from previous sleeve gastrectomy involving the left lobe of the liver and the stomach. The staple line of the sleeve was completely rotated almost 180 degrees and it was densely adherent to the undersurface of the left lobe of the liver. This required extensive and very tedious dissection in order to be completely from the liver. It took 3.5 hours to achieve this but eventually I was able to lyse these adhesions completely with the ultrasonic device. That allowed to re-position the liver retractor in order to expose the hiatal area. The gastro-esophageal fat pad was opened with the ultrasonic device ([employer], [employer]) and the anterior esophagus and hiatus were exposed. There was no angle of His present. The entire fundus was densely adherent to the left diaphragm. Some of these adhesions were opened with the ultrasonic device partially? the fundus of the stomach from any diaphragmatic and splenic attachments. I then opened the gastrocolic ligament between the transverse colon and the greater curvature of the stomach with the ultrasonic device to enter the lesser sac. This was very difficult as there were dense adhesions from previous sleeve gastrectomy. The other surgeon had left a redundant gastric fundus. The previous surgeon did not dissect adequately posterior leaving short gastric vessels? which resulted in a much larger proximal stomach which was confirmed by the preoperative UGI and EGD. These posterior short gastric vessels were ligated as well as other posterior attachments that were not divided originally. These attachments were completely twisting the stomach.? This allowed us to mobilize the stomach completely and appreciate the amount of stomach that was inappropriately left unresected at the original operation.? Mobilization of the stomach took approximately another 90 min to complete with a total operative time of 3 hours. The dissection continued all the way to the angle of His until the left cris was completely dissected at its entirety. This was also very difficult because there were very dense attachments to the spleen. Eventually the gastric fundus was completely mobilized.? The stomach was then divided transversely with two Endo VERONICA-45 purple loads, one VERONICA-45 orange loads and one VERONICA-60 orange load using the AEON stapler and loads. Every effort was made that the gastric sleeve had a tubular shape and an even caliber throughout. Multiple endoscopies were performed before each staple fire to ensure that I did not narrow the gastro-esophageal junction or the stomach anywhere. Once the sleeve resection was completed, the staple line of the gastric sleeve was reinforced with Hemoclips. The resected stomach was retrieved without difficulty from the Nasir port. A gastropexy was then performed in order to prevent postoperative GERD and partial gastric volvulus. Several interrupted 2.0 Surgidac sutures were placed between the sleeve's staple line and the previously divided greater omentum and gastro-colic ligament using the Endo-Stitch device. ?An upper endoscopy was performed. There was no narrowing at the GE junction. The scope was easily advanced all the way to the pylorus which was clearly visualized. There was no narrowing anywhere and the sleeve's caliber was even throughout. The sleeve's staple line was inspected and there was no evidence of ischemia, bleeding or dehiscence. At that point the gastroscope was withdrawn from the patient?s mouth while we were decompressing the bowel and the stomach from any remaining air. I looked into the lesser sac to see how the sleeve was situating and it was situating well. There was no bleeding from the staple line, spleen, or short gastric vessels. The Mediflex retractor was removed, and the undersurface of the liver was inspected and there was no bleeding. The patient was placed in supine position. I closed the fascial defect of the 12 mm port site with a figure of eight #1 Polysorb suture. Then 30cc Ropivacaine plain with 10 mg of Dexamethasone were used to infiltrate the fascial closure as well as all skin incisions. A total of 7ml Zynrelef was used at the Nasir port site. At this point, the abdomen was deflated, all ports were removed under direct vision, and no bleeding was noted from any of the port sites. The skin incisions were irrigated with saline and were closed with 4-0 absorbable monofilament sutures. Steri-Strips and OpSites were used to cover all incisions. The patient was extubated and was transferred in stable condition to the recovery room for further care. I was present and performed all allison parts of the procedure. Ms. Lam was the administrative sales assistant. There were no residents to assist with this case. This was a uniquely difficult surgery for all the above reasons. Kamran Ling MD, PhD, FACS Surgeon: Cole Ling MD Anesthesia: GETA, local and other (TAP block and 7ml Zynrelef) Was an Territory Account Manager used for this Procedure?: Yes Territory Account Manager: Lucinda Lam Estimated blood loss (mL): 10 IV fluids (mL): 4,000 Urine output (mL): 80 Pathology: none sent Condition: stable Disposition: PACU
--- NOTE | 2022-05-31 07:47 | PM.PNGS ---
Subjective Subjective Date of Service: 06/01/22 Interval history: Feels well. Mild incisional pain. She is tolerating phase 1 bariatric diet Physical Exam Vital Signs: Vital Signs: Last Vital Signs Temp 97.4 F 05/31/22 06:29 Pulse 77 05/31/22 06:29 Resp 16 05/31/22 06:29 BP 94/55 L 05/31/22 06:29 Pulse Ox 97 05/31/22 06:29 O2 Del Method Room Air 05/31/22 06:29 BMI result Body Mass Index 37.4 GI: Inspection: Yes normal to inspection, Yes incision (clean, dry and intact) and Yes obesity Extrem: Right lower extremity: normal to inspection (no calf tenderness) Left lower extremity: normal to inspection (no calf tenderness) Objective Data Active Medications Lactated Ringer's (Lr) 1,000 mls @ 100 mls/hr IVCONT .Q10H MARY Lactated Ringer's (Lr) 1,000 mls @ 999 mls/hr IV .Q1H1M MARY Stop: 05/31/22 08:00 Last Admin: 05/31/22 06:39 Dose: 999 mls/hr Documented By: SAV Labs 05/31/22 11:34 05/31/22 11:34 Labs: Laboratory Results - last 24 hr 05/30/22 05/31/22 05/31/22 12:13 06:06 06:32 Urine Test NEGATIVE COVID-19 ([facility]) Negative COVID-19 Clin Com See Note Blood Type O Positive Antibody Screen NEGATIVE Procedures Date of Service Date of Service: 06/01/22 Progress Note: A&P Assessment and plan (1) Obesity: Status: Acute Assessment and Plan: s/p laparoscopic sleeve gastrectomy, lysis of adhesions and gastropexy Doing well Will check am labs and if OK the patient will be discharged home (2) BMI 38.0-38.9,adult: Status: Acute (3) GERD (gastroesophageal reflux disease): Status: Acute (4) S/P laparoscopic sleeve gastrectomy: Status: Acute (5) History of sleeve gastrectomy: Status: Acute (6) Intra-abdominal adhesions: Status: Acute Time Spent With Patient Time: Total time managing care of this patient today ____ minutes. Quality Stroke Does the patient have a stroke diagnosis?: No VTE Prior VTE?: No VTE Risk Level:: Surgical - moderate VTE Device Contraindication: N/A - Device Ordered VTE Drug Contraindication: Treatment Not Indicated
--- NOTE | 2022-05-31 11:25 | PM.DS ---
DS: Providers Provider Date of Service: 06/01/22 Date of admission: 05/31/22 05:59 Primary care physician: Unknown Physician DS: Diagnosis Discharge Diagnosis (1) Obesity: Status: Acute (2) BMI 38.0-38.9,adult: Status: Acute (3) GERD (gastroesophageal reflux disease): Status: Acute DS: Summary Hospital Course Hospital Course: ADMITTING DIAGNOSIS: morbid obesity, history of sleeve gasttrectomy, GERD DISCHARGE DIAGNOSIS: same, s/p laparoscopic sleeve gastrectomy and lysis of adhesions PAST SURGICAL HISTORY: sleeve gstrectomy PROCEDURE: upper endoscopy, laparoscopic sleeve gastrectomy and gastropexy DISCHARGE SUMMARY: History of Present Illness: The patient is a 26 year-old woman with a BMI of 42.7 kg/m2 and associated co-morbidities as described above. The patient had extensive work-up, lost 25.2 lbs preoperatively and was electively scheduled for laparoscopic, possible open sleeve gastrectomy and gastropexy. Risks and complications of the surgery were discussed with the patient in advance, particularly the possibility of , pulmonary embolism, anastomotic leak, bleeding, bowel injury, GERD, cardiac, renal or pulmonary complications. The patient understood all the risks and was in agreement with the surgical plan. Hospital Course: The patient underwent an uneventful laparoscopic sleeve gastrectomy with gastropexy on the day of admission. Postoperatively, the patient was transferred to the surgical floor. The patient received IV Acetaminophen and IV dilaudid for pain control. Patient was started on bariatric phase 1 diet POD #0. On postoperative day one, the patient was feeling well without nausea, vomiting, fevers, or tachycardia. The patient had some mild incisional pain and the abdomen was soft. On the morning of postoperative day one, the patient was continued on 1 ounce of water or ice every half hour. During the day, the patient did fairly well, having some incisional pain, but able to ambulate adequately and to tolerate liquids well. Since the patient is doing well, we decided that the patient was ready to be discharged. The patient was given instructions to follow-up with me next week and to call my office for any fever over 101, persistent abdominal pain, nausea, vomiting, GERD, symptoms of DVT such as calf tenderness, or leg swelling, or pulmonary embolism such as chest pain or shortness of breath. The patient was also instructed to drink 40-60 ounces of liquids per day using the 1-ounce cups. The patient had been given prescriptions for Tylenol for pain, Zofran prn for nausea, and pantoprazole and carafate previously. The patient was encouraged to ambulate and use the incentive spirometer. The patient was allowed to shower, but no baths, and encouraged to stay active at home. All of these instructions were given to the patient personally. All questions were answered and the patient understood all instructions, the instructions were also given to the patient in print. Time Spent with Patient Time attestation: Total time managing care of this patient today ____ minutes. Discharge coordination time: Less than 30 minutes Quality: Safe Use of Opioids Does Pt have an Active Cancer Diagnosis on the Problem List?: No Quality: Stroke Does the patient have a stroke diagnosis?: No Physical Exam Vital Signs: Vital Signs: Last Vital Signs Temp 97.9 F 05/31/22 11:22 Pulse 106 H 05/31/22 11:22 Resp 20 05/31/22 11:22 BP 145/95 H 05/31/22 11:22 Pulse Ox 100 05/31/22 11:22 O2 Del Method Shovel Mask 05/31/22 11:22 O2 Flow Rate 8 05/31/22 11:22 BMI result Body Mass Index 37.4 DS: Data Data Completed and Pending Pending studies at discharge: Pending at discharge 05/31/22 10:49 Surgical [PTH] Routine Labs on day of discharge: Laboratory Results - last 24 hr 05/30/22 05/31/22 05/31/22 12:13 06:06 06:32 Urine Test NEGATIVE COVID-19 ([facility]) Negative COVID-19 Clin Com See Note Blood Type O Positive Antibody Screen NEGATIVE Discharge Plan Discharge Anticipated Discharge Date/Time: 06/01/22 10:22 Patient Disposition: Home, Self-Care Discharge Diagnosis: s/p sleeve gstrectomy Referrals: Physician,Unknown J [Primary Care Provider] - 1 Week Discharge Medications: Continued ondansetron 4 mg tablet,disintegrating 4 mg PO Q12H PRN (Reason: Nausea And Vomiting) Rx Instructions: ONLY use if you have nausea as needed trazodone 50 mg tablet 50 mg PO BEDTIME PRN (Reason: Sleep) sucralfate [Carafate] 100 mg/mL suspension 10 ml PO BID Qty: 420 3RF pantoprazole 40 mg tablet,delayed release (DR/EC) 40 mg PO DAILY Qty: 30 2RF Discontinued cyanocobalamin (vitamin B-12) 250 mcg tablet 250 mcg PO DAILY Qty: 30 6RF cholecalciferol (vitamin D3) 25 mcg (1,000 unit) capsule 25 mcg PO DAILY Qty: 30 5RF vitamin A palmitate 10,000 unit tablet 20,000 unit PO DAILY 21 Days Qty: 42 0RF polyethylene glycol 3350 [Miralax] 17 gram powder in packet 17 g PO DAILY Qty: 14 0RF Rx Instructions: Mix each packet with 8oz of water, Crystal light, or Gatorade zero, or Propel and do 7 packets on 05/29/22 and another 7 packets on 05/30/22 Fiber Gummies 2 gram tablet,chewable 2 g PO BID Qty: 60 5RF docusate sodium [Colace] 100 mg capsule 100 mg PO BID Qty: 60 5RF Discharge Orders: Discharge Order (Routine); Ordered 06/01/22 Ordered By: Cole Ling Activity on Discharge: No heavy lifting Stand Alone Forms: Patient Portal Discharge page Care Plan Goals: weight loss Health Concerns: obesity Plan of Treatment: No tub baths, sex or returning to work until discussed at first post op appointment. No exercise, alcohol, tobacco or illegal drug use. Continue to use incentive spirometer hourly while awake. Walk in home for 5- 10 minutes every 2 hours during the first week. Continue phase 1 diet today and start phase 2 diet tomorrow morning. Follow all instructions in the bariatric handbook and call with any questions. 1. Please call your doctor or come back to the emergency room should any new symptoms arise. 2. You will receive a courtesy call from [facility] 24-48 hours after discharge. 3. Activity: abstain from alcohol, practice limited stair climbing, no bending, no driving, no exercise, no illicit substances, no lifting, no sex, no tub bath, no work. 4. Diet: continue as discussed with bariatric team.. 5. Dressing Change/Wound Care: Do not change or remove surgical dressings unless they are wet or soiled. 6. Call your doctor if: - Your temperature exceeds 101.5 F - You experience excessive pain or swelling - You have an unexpected reaction to medication - You have excessive bleeding - You experience continued vomiting/nausea - Your incision begins to separate - Your incision shows signs of infection such as increased redness, swelling, excessive pain, heat, or drainage (light blood or clear fluid is normal) 7. General instructions: No lifting greater than 5 lbs for the next 4 weeks[address] within 24 hours of taking narcotic pain medications. If you do not move your bowels in the next 2 days, please take milk of magnesia over the counter. Please follow the post op diet and do not advance your diet until you are seen in the office in about 2 weeks. Please walk around your home every hour or two to prevent blood clots from forming in your legs. You do not need to wake from sleeping to walk. Please sleep in a bed or couch to prevent kinking at the hips and knees. Please take your incentive spirometer (your lung behavioral intervention specialist) home with you and use it for the next few days to prevent pneumonias. You may shower, no hot tubs, baths or swimming pools. Please call the office with any questions or concerns such as increasing abdominal pain, fever, chills, shortness of breath, chest pain, leg pain or swelling, or redness or drainage from your incisions. Do not hesitate to contact the office with any questions at . The patient's medical history has been reviewed and they are considered low risk for post op DVT and therefore DVT prophylaxis is not considered necessary. Travel after surgery was reviewed. The patient has not disclosed any travel plans during the first 30 days after surgery and they have been advised that within the first 30 days after surgery any bus, plane, train or car travel over 2 hours in duration is contraindicated due to the possibility of developing blood clots from immobility. Any travel, needs to include periods of ambulation of 10 minutes in duration every 2 hours. The patient was instructed to discuss any plans for travel during this period with their bariatric surgeon. Assessment: stable post op revision of previous sleeve gastrectomy
[2022-05-31 11:48] LABS: Hematocrit 34.7 % (37.0-47.0); Hemoglobin 11.4 g/dl (12.0-16.0)
[2022-05-31] MEDS: Famotidine/PF 20 MG/2 ML VIAL IVPUSH ×2 (11:56→19:35)
[2022-05-31] MEDS: Lactated Ringers 1,000 ML 100 ML IVCONT ×2 (12:09→20:27)
[2022-05-31 12:31] LABS: Anion Gap 13 (12-20); Blood Urea Nitrogen 7 mg/dL (9-16); Calcium 8.5 mg/dL (8.4-10.2); Carbon Dioxide 23 mmol/L (22-29); Chloride 107 mmol/L (96-108); Creatinine Clr Calc Pharmacy 141.1; Estimated Glomerular Filt Rate > 60; Glucose Random 124 mg/dL (60-115); Sodium 139 mmol/L (135-145)
[2022-05-31] MEDS: ceFAZolin Sodium/Dextrose,Iso 2 GM/50 ML PIGGYBACK IV (12:46)
[2022-05-31] MEDS: Acetaminophen 1,000 MG/100 ML PIGGYBACK 16.7 MG IV ×3 (13:28→23:39)
[2022-05-31] MEDS: 0.9 % Sodium Chloride Flush 3 ML SYRINGE IVFLUSH (19:35)
[2022-05-31] MEDS: ondansetron HCL 4 MG/2 ML VIAL IVPUSH (19:35)
[2022-05-31] MEDS: HYDROmorphone HCl 0.5 MG/0.5 ML SYRINGE 0.25 MG IVPUSH (19:46)
[2022-05-31] MEDS: traZODone HCL 50 MG TABLET PO (22:13)
[2022-06-01] MEDS: ondansetron HCL 4 MG/2 ML VIAL IVPUSH (03:41)
[2022-06-01] MEDS: HYDROmorphone HCl 0.5 MG/0.5 ML SYRINGE 0.25 MG IVPUSH (03:41)
[2022-06-01 03:51] VITALS: BP 129/82; PULSE 64; RESP 16; TEMP 36; O2SAT 93
[2022-06-01 04:09] VITALS: O2SAT 98
[2022-06-01] MEDS: Lactated Ringers 1,000 ML 100 ML IVCONT (05:26)
[2022-06-01] MEDS: Acetaminophen 1,000 MG/100 ML PIGGYBACK 16.7 MG IV (05:26)
[2022-06-01 06:35] LABS: MANUAL DIFF FLAG NO
[2022-06-01 06:38] LABS: Basophils Percent Auto 0.1 % (0-2); Eosinophils Percent Auto 0.2 % (0-4); Hematocrit 33.9 % (37.0-47.0); Hemoglobin 11.1 g/dl (12.0-16.0); Imm Gran Abs Auto 0.06 X10*3/uL (0.00-0.03); Imm Gran Pct Auto 0.5 % (0.0-0.4); Lymphocytes Absolute Auto 1.5 X10*3/uL (1.2-4.9); Lymphocytes Percent Auto 11.8 % (20-40); Mean Corpuscular HGB Conc 32.7 g/dl (31.0-35.0); Mean Corpuscular Hemoglobin 27.7 pg (27.0-33.0); Mean Corpuscular Volume 84.5 fL (80.0-98.0); Mean Platelet Volume 9.5 fL (9.4-12.3); Monocytes Absolute Auto 0.9 X10*3/uL (0.1-1.2); Monocytes Percent Auto 6.9 % (2-11); Neutrophils Percent Auto 80.5 % (45-73); Platelet Count 235 X10*3/uL (160-400); Red Blood Count 4.01 X10*6/uL (4.20-5.50); Red Cell Distribution Width 14.1 % (11.0-16.0); White Blood Count 12.4 X10*3/uL (4.8-10.8)
[2022-06-01] MEDS: 0.9 % Sodium Chloride Flush 3 ML SYRINGE IVFLUSH (07:02)
[2022-06-01] MEDS: Famotidine/PF 20 MG/2 ML VIAL IVPUSH (07:02)
[2022-06-01 07:04] LABS: Anion Gap 14 (12-20); Blood Urea Nitrogen 3 mg/dL (9-16); Calcium 8.6 mg/dL (8.4-10.2); Carbon Dioxide 23 mmol/L (22-29); Chloride 106 mmol/L (96-108); Creatinine Clr Calc Pharmacy 177.1; Estimated Glomerular Filt Rate > 60; Glucose Random 104 mg/dL (60-115); Potassium 4.1 mmol/L (3.3-5.1); Sodium 139 mmol/L (135-145)
[2022-06-01 07:17] VITALS: BP 133/74; PULSE 62; RESP 16; TEMP 35.9; O2SAT 98
--- NOTE | 2022-06-01 09:19 | MHC.CM.PN ---
Female S/P surgical intervention is discharged to home self care. She has arranged for transportation.
--- NOTE | 2022-06-01 10:58 | HO.POSTANES ---
Post Anesthesia Evaluation Post Anesthesia Evaluation Vital Signs: Vital Signs Temp Pulse Resp BP Pulse Ox O2 Del Method 06/01/22 07:54 Room Air 06/01/22 07:17 96.7 F L 62 16 133/74 98 Room Air 06/01/22 04:09 98 Room Air 06/01/22 03:51 96.8 F 64 16 129/82 93 Room Air 05/31/22 23:41 97.5 F 72 16 131/70 97 Room Air Anesthesia: General Endotracheal-GETA Mental Status: Awake Pain Control: Satisfactory Nausea/Vomiting: None Hydration: Adequate Anesthesia-Related Issues: No Anes. Related Issues
== END 2022-06-01 08:50 | disposition home or self-care (01) | DRG 403 ==
LOC: HO.SSSA 11:24 → HO.S3 11:25
PROVIDERS: Nurse Practitioner; Physician Assistant; Admitting Provider Surgery; Visit Provider Surgery
PROC: 0DB64Z3 Excision of Stomach, Percutaneous Endoscopic Approach, Vertical (ICD-10-PCS; principal; 2022-05-31 07:30)
DX: E66.01 Morbid (severe) obesity due to excess calories (principal); K76.0 Fatty (change of) liver, not elsewhere classified; F17.290 Nicotine dependence, other tobacco product, uncomplicated; G47.30 Sleep apnea, unspecified; K21.9 Gastro-esophageal reflux disease without esophagitis; Z68.38 Body mass index [BMI] 38.0-38.9, adult; K66.0 Peritoneal adhesions (postprocedural) (postinfection); Z20.822 Contact with and (suspected) exposure to COVID-19; Z79.899 Other long term (current) drug therapy
CPT/HCPCS: 36415; 80048; 81025; 82550; 85014; 85018; 85025; 86850; 86900; 86901; 87635; 88307; 88342; A4649; C9088; J0131; J0690; J1100; J1170; J2250; J2405; J2795; J3010

== ENCOUNTER → 2022-06-06 10:29 | Outpatient (BNVA) | payer OTHER, SELFPAY | PROVIDERS: PCP Internal Medicine; Visit Provider Physician Assistant Surgical | DX: E66.9 Obesity, unspecified (principal); K21.00 Gastro-esophageal reflux disease with esophagitis, without bleeding; Z68.38 Body mass index [BMI] 38.0-38.9, adult; Z72.0 Tobacco use; Z90.3 Acquired absence of stomach [part of] | CPT/HCPCS: 99212 ==

== ENCOUNTER → 2022-07-25 13:30 | Outpatient (BNVA) | payer OTHER, SELFPAY | PROVIDERS: PCP Internal Medicine; Visit Provider Physician Assistant | DX: K21.00 Gastro-esophageal reflux disease with esophagitis, without bleeding (principal); K59.00 Constipation, unspecified; U07.0 Vaping-related disorder; Z90.3 Acquired absence of stomach [part of] | CPT/HCPCS: 99212 ==